=== PATIENT | male | born 1945 | race Caucasian/White ===

== ENCOUNTER 2023-01-10 10:42 | Inpatient (IN) | payer OTHER ==
[~2023-01-10] VITALS: Ht 167.6 cm; Wt 77.1 kg
[2023-01-10 11:21] LABS: BASOPHILS % (AUTO) 0.4 % (0.0-2.0); EOSINOPHILS # (AUTO) 0.2 K/uL (0.0-0.7); EOSINOPHILS % (AUTO) 2.3 % (0.0-6.0); HEMATOCRIT 39 % (39-51); HEMOGLOBIN 13.3 g/dL (13.5-17.5); LYMPHOCYTES % (AUTO) 26.7 % (20.0-44.0); MEAN CORPUSCULAR HEMOGLOBIN 31 PG (26.0-33.0); MEAN CORPUSCULAR HGB CONC 34 g/dl (31.0-36.0); MEAN CORPUSCULAR VOLUME 92 fL (80-96); MONOCYTES # (AUTO) 0.5 K/uL (0.1-1.30); MONOCYTES % (AUTO) 6.6 % (2.0-12.0); NEUTROPHILS # (AUTO) 4.8 K/uL (1.8-8.9); PLATELET COUNT (AUTO) 187 K/uL (150-450); RED BLOOD CELL COUNT(AUTO) 4.29 MIL/uL (4.5-6.0); RED CELL DISTRIBUTION WIDTH 13.7 % (11.5-15.0); WHITE BLOOD COUNT (AUTO) 7.5 K/uL (4.3-11.0)
[2023-01-10 11:32] LABS: CARBON DIOXIDE 26 mmol/L (21-32); CHLORIDE 101 mmol/L (98-107); CREATININE 1.3 mg/dL (0.6-1.3); GLUCOSE 234 mg/dL (74-106); POTASSIUM 4.5 mmol/L (3.5-5.1); SODIUM SERUM 134 mmol/L (136-145); UREA NITROGEN, BLOOD 36 mg/dL (7-18)
[2023-01-10 11:46] LABS: ALANINE AMINOTRANSFERASE 59 U/L (12-78); ALBUMIN 3.7 g/dL (3.4-5.0); ALKALINE PHOSPHATASE 277 U/L (46-116); ASPARTATE AMINOTRANSFERASE 33 U/L (15-37); BILIRUBIN,DIRECT 0.1 mg/dL (0.0-0.2); TOTAL PROTEIN, SERUM 7.4 g/dL (6.4-8.2)
[2023-01-10 11:56] LABS: BILIRUBIN,TOTAL 0.3 mg/dL (0.2-1.0)
[2023-01-10] MEDS ORDERED: METF-881 PO (12:05)
[2023-01-10] MEDS ORDERED: INSU100V3 SQ (12:48)
[2023-01-10] MEDS ORDERED: IV NS 0.9% 1,000 ML BAG IV ONE (13:00)
[2023-01-10 14:01] VITALS: BP 145/90; TEMP 97.8; O2SAT 97
[2023-01-10] MEDS ORDERED: Z GUARD REMEDY 4 OZ OINT TP PRN (14:30)
[2023-01-10] MEDS ORDERED: MAGNESIUM HYDROXIDE 30 ML UDC PO PRN (14:30)
[2023-01-10] MEDS ORDERED: ZOLPIDEM TARTRATE 5 MG TABLET PO PRN (14:30)
[2023-01-10] MEDS ORDERED: MAG HYDROX/AL HYDROX/SIMETH 30 ML UDC PO PRN (14:30)
[2023-01-10] MEDS ORDERED: ONDANSETRON HCL/PF 4 MG/2 ML VIAL IVP PRN (14:30)
[2023-01-10] MEDS ORDERED: ACETAMINOPHEN 325 MG TABLET PO PRN (14:30)
[2023-01-10] MEDS: IV 1/2NS 1000 ML 1,000 ML IV PRN (15:12)
[2023-01-10] MEDS: ENOXAPARIN SODIUM 40 MG/0.4 ML DISP.SYRIN SQ SCH (15:23)
[2023-01-10] MEDS ORDERED: DEXTROSE 50%-WATER 50 ML DISP.SYRIN IV PRN (17:00)
[2023-01-10] MEDS: INSULIN REGULAR, HUMAN 100 UNIT/ML 3 ML VIAL SQ PRN ×2 (17:25→22:08)
[2023-01-10] MEDS: BLOOD SUGAR DIAGNOSTIC 1 EACH STRIP IN SCH ×2 (17:30→22:07)
[2023-01-10 20:00] VITALS: BP 128/82; TEMP 97; O2SAT 96
[2023-01-11] VITALS: BP 159/99; TEMP 97.6; O2SAT 97
[2023-01-11 04:00] VITALS: BP 158/95; TEMP 97.5; O2SAT 97
[2023-01-11] MEDS: IV 1/2NS 1000 ML 1,000 ML IV PRN ×2 (05:22→19:43)
[2023-01-11 07:10] LABS: BASOPHILS % (AUTO) 0.4 % (0.0-2.0); EOSINOPHILS # (AUTO) 0.2 K/uL (0.0-0.7); HEMATOCRIT 40 % (39-51); HEMOGLOBIN 13.5 g/dL (13.5-17.5); LYMPHOCYTES % (AUTO) 25.7 % (20.0-44.0); MEAN CORPUSCULAR HEMOGLOBIN 31 PG (26.0-33.0); MEAN CORPUSCULAR HGB CONC 33 g/dl (31.0-36.0); MEAN CORPUSCULAR VOLUME 92 fL (80-96); MONOCYTES # (AUTO) 0.5 K/uL (0.1-1.30); MONOCYTES % (AUTO) 6.3 % (2.0-12.0); NEUTROPHILS # (AUTO) 5.2 K/uL (1.8-8.9); NEUTROPHILS % (AUTO) 65.6 % (43.0-81.0); PLATELET COUNT (AUTO) 191 K/uL (150-450); RED BLOOD CELL COUNT(AUTO) 4.39 MIL/uL (4.5-6.0); RED CELL DISTRIBUTION WIDTH 13.6 % (11.5-15.0); WHITE BLOOD COUNT (AUTO) 7.9 K/uL (4.3-11.0)
[2023-01-11 07:35] LABS: THYROID STIMULATING HORMONE 1.364 uIU/mL (0.358-3.74)
[2023-01-11 07:41] LABS: CALCIUM, SERUM 9.4 mg/dL (8.5-10.1); CARBON DIOXIDE 24 mmol/L (21-32); CHLORIDE 104 mmol/L (98-107); GLUCOSE 139 mg/dL (74-106); PHOSPHORUS 3.9 mg/dL (2.5-4.9); POTASSIUM 4.9 mmol/L (3.5-5.1); SODIUM SERUM 139 mmol/L (136-145); UREA NITROGEN, BLOOD 25 mg/dL (7-18)
[2023-01-11 08:00] VITALS: BP 161/113; TEMP 98.1; O2SAT 98
[2023-01-11] MEDS: BLOOD SUGAR DIAGNOSTIC 1 EACH STRIP IN SCH ×4 (08:15→22:08)
[2023-01-11] MEDS: PANTOPRAZOLE 40 MG TABLET.DR PO SCH (08:15)
[2023-01-11 12:00] VITALS: BP 130/88; TEMP 98.4; O2SAT 99
[2023-01-11] MEDS: INSULIN REGULAR, HUMAN 100 UNIT/ML 3 ML VIAL SQ PRN ×2 (12:17→22:10)
[2023-01-11 16:00] VITALS: BP 130/77; TEMP 97.7; O2SAT 100
[2023-01-11] MEDS: ENOXAPARIN SODIUM 40 MG/0.4 ML DISP.SYRIN SQ SCH (16:00)
[2023-01-11 20:00] VITALS: BP 101/77; TEMP 97.3; O2SAT 97
[2023-01-12] VITALS: BP 134/72; TEMP 97.3; O2SAT 94
[2023-01-12 04:00] VITALS: BP 145/89; TEMP 97.5; O2SAT 98
[2023-01-12 07:02] LABS: BASOPHILS % (AUTO) 0.6 % (0.0-2.0); EOSINOPHILS # (AUTO) 0.2 K/uL (0.0-0.7); EOSINOPHILS % (AUTO) 3.1 % (0.0-6.0); HEMATOCRIT 40 % (39-51); HEMOGLOBIN 13.7 g/dL (13.5-17.5); LYMPHOCYTES # (AUTO) 2.3 K/uL (0.8-4.8); LYMPHOCYTES % (AUTO) 34.2 % (20.0-44.0); MEAN CORPUSCULAR HEMOGLOBIN 31 PG (26.0-33.0); MEAN CORPUSCULAR HGB CONC 34 g/dl (31.0-36.0); MEAN CORPUSCULAR VOLUME 91 fL (80-96); MONOCYTES # (AUTO) 0.3 K/uL (0.1-1.30); MONOCYTES % (AUTO) 5.2 % (2.0-12.0); NEUTROPHILS # (AUTO) 3.8 K/uL (1.8-8.9); NEUTROPHILS % (AUTO) 56.9 % (43.0-81.0); PLATELET COUNT (AUTO) 181 K/uL (150-450); RED BLOOD CELL COUNT(AUTO) 4.43 MIL/uL (4.5-6.0); RED CELL DISTRIBUTION WIDTH 13.4 % (11.5-15.0); WHITE BLOOD COUNT (AUTO) 6.7 K/uL (4.3-11.0)
[2023-01-12 07:45] LABS: CALCIUM, SERUM 9.2 mg/dL (8.5-10.1); CARBON DIOXIDE 24 mmol/L (21-32); CHLORIDE 104 mmol/L (98-107); CREATININE 0.8 mg/dL (0.6-1.3); GLUCOSE 121 mg/dL (74-106); PHOSPHORUS 3.7 mg/dL (2.5-4.9); POTASSIUM 4.2 mmol/L (3.5-5.1); SODIUM SERUM 140 mmol/L (136-145); UREA NITROGEN, BLOOD 20 mg/dL (7-18)
[2023-01-12] MEDS: BLOOD SUGAR DIAGNOSTIC 1 EACH STRIP IN SCH ×2 (07:55→12:06)
[2023-01-12] MEDS: PANTOPRAZOLE 40 MG TABLET.DR PO SCH (08:20)
[2023-01-12] MEDS: IV 1/2NS 1000 ML 1,000 ML IV PRN (09:24)
[2023-01-12 09:53] VITALS: BP 136/97; TEMP 97.7; O2SAT 98
[2023-01-12] MEDS: INSULIN REGULAR, HUMAN 100 UNIT/ML 3 ML VIAL SQ PRN (12:25)
[2023-01-12 13:17] VITALS: BP 119/82; TEMP 98.2; O2SAT 95
== END 2023-01-12 16:40 | disposition home health service (06) | DRG 312 ==
LOC: ER 10:44 → TELE1 13:27
PROVIDERS: ADMIT Student in an Organized Health Care Education/Training Program; ATTEND Student in an Organized Health Care Education/Training Program
DX: I95.1 Orthostatic hypotension (principal); E87.1 Hypo-osmolality and hyponatremia; E86.0 Dehydration; E11.9 Type 2 diabetes mellitus without complications; D64.9 Anemia, unspecified; Z79.4 Long term (current) use of insulin; R79.89 Other specified abnormal findings of blood chemistry
CPT/HCPCS: 36415; 70450-TC; 71045-TC; 80048-TC; 80076-TC; 82962-TC; 83735-TC; 84100-TC; 84443-TC; 84484-TC; 85025-TC; 93307-TC; 97110-TC; 97116-TC; 97530-TC; A4223; G0378; J1650; J1815; J3490; J7030